=== PATIENT | female | born 1950 | race Caucasian/White ===

== ENCOUNTER → 2017-02-18 | Day surgery (SDC) | payer MEDICARE, BC ==
[~2017-02-18] VITALS: Ht 157.5 cm; Wt 74.8 kg
[~2017-02-18] MED LIST: ALL10TAB27 PO; AMLO2.5T PO; ASPI81TA85 PO; CALC600T7 PO; IBUP200T45 PO; IBUPROFEN 600 MG TAB PO PRN; KETOROLAC 60 MG/2 ML VIAL (J1885) As Ordered ONE; LIDOCAINE 1% MDV 20ML VIAL SC ONE; LIDOCAINE 2% INJ 100 MG/5 ML SDV (FOR ANES.) As Ordered ONE; LOSA100T36 PO; LR 1,000 ML IV ONE; LR 1,000 ML IV SCH; MEPERIDINE INJ 25 MG/ML VIAL (J2175) IV PRN; METO1TAB32 PO; METOCLOPRAMIDE INJ 10MG/2ML VIAL (J2765) IV PRN; MIDAZOLAM INJ 2 MG/2 ML VIAL (J2250) As Ordered ONE; ONDANSETRON 4MG/2ML VIAL (J2405) As Ordered ONE; ONDANSETRON 4MG/2ML VIAL (J2405) IV PRN; PERCOCET 5MG/325MG TAB PO PRN; PRIL20CA9 PO; PROPOFOL 200 MG/20 ML VIAL As Ordered ONE; SIMV20TA2 PO; SING10TA32 PO; VITA100067 PO; dexameTHASONE 4 MG/ML 1ML VIAL (J1100) As Ordered ONE; fentaNYL 100 MCG/2 ML INJECTION (J3010) As Ordered ONE; fentaNYL 100 MCG/2 ML INJECTION (J3010) IV PRN; omegaXL PO
[2017-02-18 11:30] VITALS: BP 132/78
--- NOTE | 2017-02-19 13:18 | RO ---
DATE OF PROCEDURE: 02/18/2017 PREOPERATIVE DIAGNOSES: Postmenopausal bleeding, hematuria and thickened endometrium by ultrasound. POSTOPERATIVE DIAGNOSES: Postmenopausal bleeding, hematuria and thickened endometrium by ultrasound. As well as endometrial polyp found and urethral caruncle, but that was known preoperatively. PROCEDURE: Dilation and curettage (D and C), hysteroscopy and MyoSure resection of the polyp and cystourethroscopy. SURGEON: Dr. Jerri Jenkins QM NURSE: ANESTHESIA: LMA. DESCRIPTION OF PROCEDURE: Eryn was brought to the operating room where sufficient LMA anesthesia was induced, and she was prepped, draped and positioned in the usual sterile fashion with the bladder emptied. There is a visible caruncle, which had been noted preoperatively, but we were not sure that was the entire cause of her hematuria. We then grasped the cervix with a single toothed tenaculum, carefully dilated it and placed the hysteroscope. We were slightly deviated from the cavity, as was noted in some initial pictures that do not seem to have come out. We then redirected the scope and were able to see that there was a large polyp filling the cavity and it sort of pushed the dilator off course. We were able, with the MyoSure, to completely resect this polyp and then visually see that there were normal tubal ostia. There is kind of a rounded shape to the uterus, which is residual of the round polyp that had been filling the cavity, which was completely removed and sent to pathology. We then sampled the remainder of the endometrial wall and carried out some curettage as well. Following this, we turned our attention to the cystourethroscopy. The cystoscope was placed. The urethra itself was slightly friable with that caruncle, even just from placement of the cystoscope. There are no other lesions or difficulties. The bladder has no polyps, stones and no friable areas of the wall. The ureters are normal in appearance. We were able with the 70 degree scope to get a full 360 degree view and see that there were no concerning lesions. Following this, the procedure was ended. Estimated blood loss for the procedure was about 5 mL. Fluid replacement was crystalloid. Complications: None. Condition and Disposition: Eryn tolerated the procedure well and was recovering in the recovery room in good condition.
== END | disposition home or self-care (01) ==
LOC: M SDC 06:08
PROVIDERS: ATTEND Obstetrics & Gynecology
DX: C54.1 Malignant neoplasm of endometrium (principal); N36.2 Urethral caruncle; R31.9 Hematuria, unspecified; R93.8 Abnormal findings on diagnostic imaging of other specified body structures; N84.0 Polyp of corpus uteri; I10 Essential (primary) hypertension; G43.909 Migraine, unspecified, not intractable, without status migrainosus; E78.5 Hyperlipidemia, unspecified; J30.9 Allergic rhinitis, unspecified; M19.90 Unspecified osteoarthritis, unspecified site; M54.9 Dorsalgia, unspecified; M81.0 Age-related osteoporosis without current pathological fracture; Z79.899 Other long term (current) drug therapy; Z79.82 Long term (current) use of aspirin
CPT/HCPCS: 58558; 88305; J1100; J1885; J2250; J2405; J2765; J3010

== ENCOUNTER → 2017-06-02 | Outpatient (REF) | payer MEDICARE, BC ==
[~2017-06-02] MED LIST changes: -IBUPROFEN 600 MG TAB PO PRN; -KETOROLAC 60 MG/2 ML VIAL (J1885) As Ordered ONE; -LIDOCAINE 1% MDV 20ML VIAL SC ONE; -LIDOCAINE 2% INJ 100 MG/5 ML SDV (FOR ANES.) As Ordered ONE; -LR 1,000 ML IV ONE; -LR 1,000 ML IV SCH; -MEPERIDINE INJ 25 MG/ML VIAL (J2175) IV PRN; -METOCLOPRAMIDE INJ 10MG/2ML VIAL (J2765) IV PRN; -MIDAZOLAM INJ 2 MG/2 ML VIAL (J2250) As Ordered ONE; -ONDANSETRON 4MG/2ML VIAL (J2405) As Ordered ONE; -ONDANSETRON 4MG/2ML VIAL (J2405) IV PRN; -PERCOCET 5MG/325MG TAB PO PRN; -PROPOFOL 200 MG/20 ML VIAL As Ordered ONE; -dexameTHASONE 4 MG/ML 1ML VIAL (J1100) As Ordered ONE; -fentaNYL 100 MCG/2 ML INJECTION (J3010) As Ordered ONE; -fentaNYL 100 MCG/2 ML INJECTION (J3010) IV PRN
== END ==
LOC: M LAB REF 16:31
PROVIDERS: ATTEND Obstetrics & Gynecology
DX: R31.0 Gross hematuria (principal); R39.89 Other symptoms and signs involving the genitourinary system

== ENCOUNTER → 2018-09-14 | Outpatient (CLI) | payer MEDICARE, BC ==
[~2018-09-14] MED LIST changes: -ALL10TAB27 PO; +ALL10TAB28 PO; -AMLO2.5T PO; +AMLO2.5T3 PO; +FISH7.5C PO; +LASI40TA9 PO; +LIDOCAINE 1% MDV 20ML VIAL As Ordered ONE; -LOSA100T36 PO; +LOSA100T50 PO; +OMEP20CA3 PO; +SF1.1GEL DT; +TRAM50TA2 PO
--- NOTE | 2018-09-14 21:20 | REP ---
CT-GUIDED RIGHT LOWER LOBE LUNG BIOPSY The procedure was performed under the direct supervision of Dr. Leal. The patient has a history to 2.1 cm nodule in the right lower lobe seen on a previous CT scan dated 08/04/2018 from [facility]. The risks and benefits of the procedure were explained to the patient and informed consent was obtained. The right lower lobe nodule was localized using CT guidance. On the initial CT images the patient appears to have a [id number] right pleural effusion. This is a new finding from the previous CT scan performed on 08/04/2018. It was felt to be unsafe to proceed with the biopsy. The ordering physician, Dr. Hope, was notified of these findings at the time of the procedure. The patient will follow-up with Dr. Hope. Reviewed by PANCHITO Schmidt 09/14/2018 05:38 P Electronically Signed by Adolfo Leal MD 09/14/2018 09:11 P
== END ==
LOC: M RADPRO 08:26
PROVIDERS: ATTEND Internal Medicine Pulmonary Disease
DX: J90 Pleural effusion, not elsewhere classified (principal); R91.8 Other nonspecific abnormal finding of lung field

== ENCOUNTER → 2018-09-15 | Outpatient (CLI) | payer MEDICARE, BC ==
[~2018-09-15] MED LIST changes: -LIDOCAINE 1% MDV 20ML VIAL As Ordered ONE
[2018-09-15 10:34] LABS: BASO % 0.5 % (0.0-1.0); EOS # 0.1 10^3/uL (0.0-0.50); EOS % 2.5 % (0.0-3.0); HEMATOCRIT 42.4 % (36.0-47.0); HEMOGLOBIN 13.9 g/dl (12.0-15.5); LYMPH # 0.9 10^3/uL (1.5-4.5); LYMPH % 20.1 % (24.0-44.0); MEAN CORPUSCULAR HEMOGLOBIN 31.2 pg (27.0-33.0); MEAN CORPUSCULAR HGB CONC 32.8 g/dl (32.0-36.5); MEAN CORPUSCULAR VOLUME 95.3 fl (80.0-96.0); MONO # 0.4 10^3/uL (0.0-0.8); MONO % 9.8 % (0.0-5.0); NEUTROPHILS # 2.9 10^3/uL (1.8-7.7); NEUTROPHILS % 66.9 % (36.0-66.0); PLATELET COUNT, AUTOMATED 232 10^3/uL (150-450); RED BLOOD COUNT 4.45 10^6/uL (4.00-5.40); WHITE BLOOD COUNT 4.4 10^3/uL (4.0-10.0)
[2018-09-15 10:48] LABS: INR 0.99; PROTHROMBIN TIME 13.2 SECONDS (12.1-14.4)
[2018-09-15 11:00] LABS: ALBUMIN 3.8 GM/DL (3.2-5.2); ALT/SGPT 24 U/L (12-78); BILIRUBIN,TOTAL 0.7 MG/DL (0.2-1.0); BLOOD UREA NITROGEN 13 MG/DL (7-18); CALCIUM LEVEL 9.6 MG/DL (8.8-10.2); CARBON DIOXIDE LEVEL 28 MEQ/L (21-32); CHLORIDE LEVEL 106 MEQ/L (98-107); CREATININE FOR GFR 0.71 MG/DL (0.55-1.30); GLOMERULAR FILTRATION RATE > 60.0 (>45); GLUCOSE, FASTING 95 MG/DL (70-100); LDH LACTATE DEHYDROGENASE 191 U/L (84-246); POTASSIUM SERUM 4.6 MEQ/L (3.5-5.1); SODIUM LEVEL 139 MEQ/L (136-145); TOTAL PROTEIN 6.9 GM/DL (6.4-8.2)
--- NOTE | 2018-09-15 12:07 | RO ---
DATE OF PROCEDURE: 09/15/2018 DIAGNOSIS: Right pleural effusion. FINDING: Moderate right pleural effusion. PROCEDURES: Right ultrasound-guided thoracentesis. SURGEON: Dr. Claus Hope. TIP SCOURER: None ANESTHESIA: 1% lidocaine 10 mL. SPECIMENS: 1. Cytology. 2. PH. 3. Cell count. 4. Culture, AFB. 5. Gram stain and aerobic culture. 6. Glucose. 7. Total protein. 8. LDH. 9. Albumin. 10. Amylase. 11. Anaerobic culture. 12. Fungal culture. DESCRIPTION OF PROCEDURE: Informed consent was reviewed with the patient in preprocedure area. The patient was then placed in the sitting position. Time-out was performed identifying two patient identifiers identifying correct site, correct procedure. The largest fluid collection was identified under ultrasound and marked. Chlorhexidine and full barrier precautions were used. 1% lidocaine was introduced subcutaneously down to the level of the pleura with return of turbid, red non-clotting fluid. The needle was removed and the arrow trocar was placed. Catheter was advanced over the trocar and the trocar was removed. There was return of a total of 1200 mL of dark red fluid. The procedure was stopped due to chest discomfort and back discomfort. There were no observed complications. Postprocedure chest x-ray shows near resolution of the fluid. There is no evidence of pneumothorax. After the catheter was removed under exhalation, a Band-Aid was placed over the site. MARCOS
[2018-09-15 12:17] LABS: APPEARANCE, BODY FLUID CLOUDY (CLEAR); PLEURAL FL COLOR RED (COLORLESS); SOURCE, BODY FLUID PLEURAL
[2018-09-15 12:29] LABS: PH BODY FLUID 7.512 UNITS (NOT ESTABLISHED); SOURCE, BODY FLUID pH PLEURAL
--- NOTE | 2018-09-15 12:41 | REP ---
POST THORACENTESIS CHEST: 09/15/2018. COMPARISON: Images from a limited CT 09/14/2018, outside CT chest 08/04/2018. CLINICAL HISTORY: Right thoracentesis, right chest. FINDINGS: Indwelling right jugular port catheter with tip in the SVC near the right atrium. Right pleural effusion has been drained with small residual fluid in the minor fissure, major fissure, and in the posterior sulcus. There is no pneumothorax. Left lung clear. Peripheral right lateral base density, less well seen than on CT. Heart size not grossly enlarged. The aorta is normal. Airway intact. IMPRESSION: 1. Status post thoracentesis right chest, no pneumothorax. Small residual amount of fluid. Electronically Signed by Adolfo Leal MD 09/15/2018 02:24 P
[2018-09-15 13:06] LABS: AMYLASE, BODY FLUID 25 U/L (NOT ESTABLISHED); LDH, BODY FLUID 198 U/L (NOT ESTABLISHED); SOURCE, BODY FLUID AMYLASE PLEURAL; SOURCE, BODY FLUID GLUCOSE PLEURAL; SOURCE, BODY FLUID LDH PLEURAL; SOURCE, BODY FLUID TOT PROTEIN PLEURAL; TOTAL PROTEIN, BODY FLUID 4.8 G/DL (NOT ESTABLISHED)
== END ==
LOC: M RADPRO 10:17
PROVIDERS: ATTEND Internal Medicine Pulmonary Disease
DX: J90 Pleural effusion, not elsewhere classified (principal); Z79.82 Long term (current) use of aspirin; Z79.899 Other long term (current) drug therapy

== ENCOUNTER 2018-09-20 09:07 | Inpatient (IN) | payer MEDICARE, BC ==
[~2018-09-20] VITALS: Ht 160 cm; Wt 76.1 kg
[2018-09-20] MEDS: PANTOPRAZOLE 40MG TAB (PROTONIX) PO SCH (09:00)
[~2018-09-20 09:07] MED LIST changes: -FISH7.5C PO; -LASI40TA9 PO; -OMEP20CA3 PO; -SF1.1GEL DT; -TRAM50TA2 PO
[2018-09-20] MEDS ORDERED: KCL 20MEQ IN D5/NS 1000ML 1,000 ML IV SCH (10:57)
[2018-09-20] MEDS ORDERED: LEVALBUTEROL 1.25 MG/0.5 ML CONCENTRATE NEB NEB PRN (11:00)
[2018-09-20] MEDS ORDERED: ACETAMINOPHEN TAB 650MG DOSE (2X325MG) PO PRN (11:00)
[2018-09-20] MEDS ORDERED: NORCO, ANEXSIA 5/325MG TABLET (HYDROcodone/ACETAMINOPHEN) PO PRN (11:00)
[2018-09-20] MEDS ORDERED: BISACODYL 10 MG SUPP PR PRN (11:00)
[2018-09-20] MEDS ORDERED: KETOROLAC 30 MG/ML VIAL (J1885) IV SCH (12:00)
[2018-09-20] MEDS ORDERED: FLUMAZENIL 0.5 MG/5 ML VIAL As Ordered ONE (12:50)
[2018-09-20] MEDS ORDERED: MIDAZOLAM INJ 2 MG/2 ML VIAL (J2250) As Ordered ONE (12:51)
[2018-09-20] MEDS ORDERED: LIDOCAINE 1% MDV 20ML VIAL As Ordered ONE (12:52)
[2018-09-20 13:06] VITALS: BP 161/93
[2018-09-20 13:22] LABS: BASO % 0.2 % (0.0-1.0); EOS # 0.2 10^3/uL (0.0-0.50); EOS % 2.5 % (0.0-3.0); HEMATOCRIT 40.6 % (36.0-47.0); HEMOGLOBIN 13.9 g/dl (12.0-15.5); LYMPH # 0.7 10^3/uL (1.5-4.5); LYMPH % 11.6 % (24.0-44.0); MEAN CORPUSCULAR HEMOGLOBIN 31.4 pg (27.0-33.0); MEAN CORPUSCULAR HGB CONC 34.2 g/dl (32.0-36.5); MEAN CORPUSCULAR VOLUME 91.9 fl (80.0-96.0); MONO # 0.6 10^3/uL (0.0-0.8); MONO % 9.2 % (0.0-5.0); NEUTROPHILS # 4.5 10^3/uL (1.8-7.7); NEUTROPHILS % 76.3 % (36.0-66.0); PLATELET COUNT, AUTOMATED 270 10^3/uL (150-450); RED BLOOD COUNT 4.42 10^6/uL (4.00-5.40)
[2018-09-20 13:45] LABS: BLOOD UREA NITROGEN 12 MG/DL (7-18); CALCIUM LEVEL 9.8 MG/DL (8.8-10.2); CARBON DIOXIDE LEVEL 26 MEQ/L (21-32); CHLORIDE LEVEL 105 MEQ/L (98-107); GLOMERULAR FILTRATION RATE > 60.0 (>45); GLUCOSE, FASTING 104 MG/DL (70-100); LDH LACTATE DEHYDROGENASE 176 U/L (84-246); SODIUM LEVEL 137 MEQ/L (136-145)
[2018-09-20] MEDS: KETOROLAC 30 MG/ML VIAL (J1885) IV SCH ×2 (13:50→20:03)
--- NOTE | 2018-09-20 14:25 | REP ---
Chest one-view HISTORY: Pleural effusion Comparison: 09/15/2018 Parenchymal density is present in the right lower lobe consistent with atelectasis or infiltrate. A small right pleural effusion is present. Linear density is present in the left lower lobe consistent with atelectasis. The heart is normal in size. The pulmonary vasculature is normal in appearance. An Blqptn-[id number]-Hpyc catheter is present. Impression: 1. Right lower lobe atelectasis or infiltrate . 2. Small right pleural effusion. 3. Left lower lobe atelectasis. Electronically Signed by Renaldo Baldwin MD 09/20/2018 02:16 P
--- NOTE | 2018-09-20 14:29 | RO ---
DATE OF PROCEDURE: 09/20/2018 PREPROCEDURE DIAGNOSIS: Right pleural effusion. POSTPROCEDURE DIAGNOSIS: Right pleural effusion. PROCEDURE: Insertion of right lateral chest tube. SURGEON: Dr. Virgilio Jones TIP STRETCHER: ANESTHESIA: FINDINGS: 1600 mL of serosanguineous, more serous than sanguinous fluid, was eluted from the chest. It was sent for the requisite chemistries, cytologies, hematologies, and bacteriologies. DESCRIPTION OF PROCEDURE: Under satisfactory monitored sedation achieved with 6 mg of Versed, the patient was prepped and draped in the usual sterile fashion. Incision was made in the inframammary fold in the right mid axillary line. A tunnel was created in the chest without difficulty. A tunnel was dilated and a #24 chest tube was placed without difficulty. The above findings were noted. The chest tube was secured to the chest wall with #2 Tevdek suture. The patient tolerated the procedure well and a chest x-ray is pending.
[2018-09-20 14:31] LABS: PH BODY FLUID 7.688 UNITS (NOT ESTABLISHED); SOURCE, BODY FLUID pH PLEURAL
--- NOTE | 2018-09-20 14:34 | REP ---
Clinical: Status post thoracentesis for pleural effusion. Comparison: 09/20/2018 at 13:33. Findings: Right-sided chest tube overlies the lower lung field and previous pleural effusion is decreased. Right basilar atelectasis noted. No obvious pneumothorax. Mediastinum and cardiac silhouette are stable. Left hemithorax is well-aerated and clear. Nkjwig-M-Osoa identified with tip in the SVC. Skeletal structures are intact. Impression: Right chest tube with decreased pleural effusion. Right lower lobe atelectasis. No obvious pneumothorax. Electronically Signed by Jani Clements MD 09/20/2018 02:26 P
[2018-09-20 14:36] LABS: ABG BASE EXCESS 0.4 (-2.0-2.0); ABG HCO3 24.4 MEQ/L (22.0-26.0); ABG O2 SATURATION 96.1 % (95.0-99.0); ABG PARTIAL PRESSURE CO2 37.2 mmHg (35.0-45.0); ABG PARTIAL PRESSURE O2 82.9 mmHg (75.0-100.0); ABG STANDARD HCO3 24.8 MEQ/L (22.0-26.0); ABG TOTAL CO2 25.5 MEQ/L (23.0-31.0); ABG pH (ARTERIAL) 7.434 UNITS (7.350-7.450)
[2018-09-20] MEDS ORDERED: FISH7.5C PO (14:39)
[2018-09-20] MEDS ORDERED: SF1.1GEL DT (14:39)
[2018-09-20] MEDS ORDERED: TRAM50TA2 PO (14:39)
[2018-09-20] MEDS ORDERED: OMEP20CA3 PO (14:39)
[2018-09-20] MEDS: LEVALBUTEROL 1.25 MG/0.5 ML CONCENTRATE NEB NEB SCH ×2 (14:51→20:30)
[2018-09-20 15:01] LABS: APPEARANCE, BODY FLUID CLOUDY (CLEAR); PLEURAL FL COLOR RED (COLORLESS); SOURCE, BODY FLUID PLEURAL
[2018-09-20] MEDS: PERCOCET 5MG/325MG TAB PO PRN (15:04)
[2018-09-20 15:07] LABS: AMYLASE, BODY FLUID 23 U/L (NOT ESTABLISHED); CHOLESTEROL, BODY FLUID 87 MG/DL (NOT ESTABLISHED); SOURCE, BODY FLUID ALBUMIN PLEURAL; SOURCE, BODY FLUID AMYLASE PLEURAL; SOURCE, BODY FLUID CHOL PLEURAL; SOURCE, BODY FLUID GLUCOSE PLEURAL; SOURCE, BODY FLUID TOT PROTEIN PLEURAL; SOURCE, BODY FLUID TRIG PLEURAL; TOTAL PROTEIN, BODY FLUID 4.9 G/DL (NOT ESTABLISHED); TRIGLYCERIDE, BODY FLUID 49 MG/DL (NOT ESTABLISHED)
--- NOTE | 2018-09-20 15:19 | HPE ---
DATE OF ADMISSION: 09/20/2018 The patient is being admitted at the request of Dr. Hope for a pleural effusion and multiple lung masses. HISTORY OF PRESENT ILLNESS: The patient is a 68-year-old white female who underwent hysterectomy, chemotherapy and radiation therapy for endometrial carcinoma, which was graded Stage III A. On 08/22/2018 she noticed a right sided lateral chest discomfort. It was more of a dull aching pain and she thought she pulled a muscle. She therefore sought advice first from Dr. Rojas, her oncologist, who noted multiple lung masses, and Dr. Hope, who confirmed the same. She does not complain of shortness of breath until a few days ago when she had fluid accumulation. At that point in time, she was drained over 1 liter. In the last 2 days, she has become again short of breath, having difficulty walking from her car in the parking lot to her room in the hospital. She has a slight cough but not sputum production and certainly no hemoptysis. The cough has only been about 2 or 3 days. She has chest discomfort, which increases with taking a deep breath. There has been no weight change. She has no fever or chills, but does complain of sweats, which she puts down to hormonal therapy. There is no dysphagia. PAST MEDICAL HISTORY: 1. The above poorly differentiated adenocarcinoma of the endometrium, Stage III A. 2. History of perirectal abscesses. 3. History of vertigo. 4. Gastroesophageal reflux disease (GERD). 5. Hypercholesterolemia. 6. Hypertension. PAST SURGICAL HISTORY: 1. The above hysterectomy. 2. Tonsillectomy as a child. 3. Two D and C's in the remote past. MEDICATIONS: - aspirin 81 mg daily - vitamin D 1000 units daily - Prilosec 20 mg daily - metoprolol 25 mg daily - cetirizine 10 mg daily - amlodipine 2.5 mg daily - Singulair 1 mg at night - simvastatin 20 mg daily - omega 3 1000 mg daily ALLERGIES: None. HABITS: Lifetime nonsmoker. Does not drink. No illicit drugs. EXPOSURES: No dogs, birds or cats at home. No exposures to tuberculosis. OCCUPATIONAL HISTORY: She used to work as a nurse's aide. Her TB tests were negative. FAMILY HISTORY: Mother at the age of 95 with hypertension. Father at 75 with unknown cancer. She has a brother with hypertension. REVIEW OF SYSTEMS: CONSTITUTIONAL: See history of present illness. Without fevers, chills, but with night sweats occasionally. No weight loss. EYES: Without diplopia, without prior jaundice. Without amaurosis fugax. Wears glasses. NOSE: Without epistaxis. Has dentures. RESPIRATORY: See history of present illness. CARDIAC: Without orthopnea, paroxysmal nocturnal dyspnea. Without prior myocardial infarctions or anginal type chest pain. Without intermittent claudication. Has occasional leg edema. GASTROINTESTINAL: Without nausea, vomiting, diarrhea or constipation. Does have black stools, which she attributes to iron. No hematochezia. No hematemesis. Does not complain of abdominal pain. GENITOURINARY: Without dysuria or hematuria or history of renal stones. NEUROLOGIC: Has peripheral neuropathy from her chemotherapy. Without paresthesias, paralyses or prior CVAs. Without amaurosis fugax. ENDOCRINE: Without thyroid disease and without diabetes. PSYCHIATRIC: Without pathological anxieties, depression, or psychoses. HEMATOLOGIC: Without prolonged bleeding times. PHYSICAL EXAMINATION: VITAL SIGNS: Temperature 98.2 with a heart rate of 97 in a sinus rhythm, respiratory rate of 22, blood pressure 161/93, and she is 92% saturated on room air. HEAD: Normocephalic. Eyes: Pupils are equal, round and reactive to light. Extraocular motors are intact. Sclerae nonicteric. Nose without deformity. Mouth shows her mucous membranes to be pink and moist. Lips and commissures without lesions. Dentures are in place. There is no thrush. Neck is supple. There is no jugular venous distention (JVD). No subcutaneous emphysema. Trachea is midline. She has 2+ carotid pulses without bruits. LUNGS: Show decreased breath sounds in the right lower hemithorax with a dull percussion note to the right hemithorax. She has diminished breath sounds in the right hemithorax. I do hear some expiratory wheezing, particularly on the right side. CARDIAC: Without murmurs, clicks, gallops or rubs. I cannot feel her point of maximum impulse (PMI). S1, S2 are normal. ABDOMEN: Soft, nontender. Bowel sounds positive. There is no hepatomegaly and no costovertebral angle tenderness. EXTREMITIES: Show no pretibial edema. No calf tenderness. No differential swelling of the upper extremities. SKIN: Warm, dry and perfused without cyanosis or mottling, including that of the nail beds and knees. NEUROLOGIC: Shows II-XII intact. Gross motor and gross sensation intact. Gait is not tested. PSYCHIATRIC: Shows her to be awake and alert, oriented times three with appropriate mood and affect and conversational. INVESTIGATIONS: Her white count is 6.0 with a hemoglobin and hematocrit of 13.9 and 40.6, respectively with a platelet count of 270. Differential shows 76% neutrophils, 11% lymphocytes, 9% monocytes. There are no immature forms. No toxic granulations. Her electrolytes are normal with a BUN and creatinine of 12 and 0.8 with a glucose of 104 and a calcium of 9.8. Blood gases are pending. Her spirometry shows an FEV1 of 1.95 with an FEV1/FVC ratio of 87%. These look to be normal pulmonary function tests. Chest CT done at [place] shows multiple lung masses in all lobes with a right lower lobe lung mass, which is adjacent to the chest wall. There are no emphysematous changes. The masses measure anywhere between 1 and 2 cm. She is scheduled for a lung biopsy; however, when the CT guidance images were obtained, she had a new pleural effusion, which is pushing the lower lobe lesion away from the chest wall. Her chest x-ray today shows a pleural effusion on the right side, approximately one-third of the way up the chest. IMPRESSION: 1. Recurrent right sided pleural effusion. 2. 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 3. Hyperlipidemia. 4. Hypertension. 5. Gastroesophageal reflux disease (GERD). PLAN/DISCUSSION: I will place a chest tube to get the lung back to the chest wall and then proceed with a lung biopsy tomorrow. By that time, the fluid should be all gone and the lung back to the chest wall. The patient and her family understand the strategy and they are willing to proceed.
[2018-09-20 15:45] LABS: LDH, BODY FLUID 180 U/L (NOT ESTABLISHED); SOURCE, BODY FLUID LDH PLEURAL
[2018-09-20 16:00] VITALS: BP 128/74
[2018-09-20] MEDS: NORCO, ANEXSIA 5/325MG TABLET (HYDROcodone/ACETAMINOPHEN) PO PRN ×2 (16:39→20:04)
[2018-09-20 20:00] VITALS: BP 118/67
[2018-09-20] MEDS: HEPARIN SOD (PORCINE) 5000 UNITS/ML VIAL SC SCH (20:02)
[2018-09-20] MEDS: DOCUSATE SODIUM 100 MG CAP PO SCH (20:04)
[2018-09-20] MEDS: ONDANSETRON 4MG/2ML VIAL (J2405) IV PRN (21:12)
[2018-09-20] MEDS ORDERED: LIDOCAINE 1% MDV 20ML VIAL SC ONE (21:15)
[2018-09-20] MEDS ORDERED: MIDAZOLAM INJ 2 MG/2 ML VIAL (J2250) IV ONE ×3 (21:15)
[2018-09-20] MEDS: MORPHINE 4 MG/ML 1ML VIAL/SYRINGE (J2270) IV PRN (21:36)
[2018-09-21] VITALS (10 sets, daily range): BP systolic 116–137; BP diastolic 59–74
[2018-09-21] MEDS: MORPHINE 4 MG/ML 1ML VIAL/SYRINGE (J2270) IV PRN ×2 (00:33→04:56)
[2018-09-21] MEDS: LEVALBUTEROL 1.25 MG/0.5 ML CONCENTRATE NEB NEB SCH ×4 (02:00→20:36)
[2018-09-21] MEDS: KETOROLAC 30 MG/ML VIAL (J1885) IV SCH ×4 (02:45→20:10)
[2018-09-21] MEDS: ONDANSETRON 4MG/2ML VIAL (J2405) IV PRN ×4 (04:37→17:40)
[2018-09-21 05:50] LABS: ABG BASE EXCESS -0.1 (-2.0-2.0); ABG HCO3 25.2 MEQ/L (22.0-26.0); ABG O2 SATURATION 94.1 % (95.0-99.0); ABG PARTIAL PRESSURE CO2 43.5 mmHg (35.0-45.0); ABG PARTIAL PRESSURE O2 68.8 mmHg (75.0-100.0); ABG STANDARD HCO3 24.3 MEQ/L (22.0-26.0); ABG TOTAL CO2 26.5 MEQ/L (23.0-31.0)
[2018-09-21 06:13] LABS: BASO % 0.2 % (0.0-1.0); EOS # 0.2 10^3/uL (0.0-0.50); EOS % 4.4 % (0.0-3.0); HEMATOCRIT 37.3 % (36.0-47.0); HEMOGLOBIN 12.3 g/dl (12.0-15.5); LYMPH # 0.6 10^3/uL (1.5-4.5); LYMPH % 13.2 % (24.0-44.0); MONO # 0.6 10^3/uL (0.0-0.8); MONO % 11.9 % (0.0-5.0); NEUTROPHILS # 3.3 10^3/uL (1.8-7.7); NEUTROPHILS % 69.9 % (36.0-66.0); PLATELET COUNT, AUTOMATED 195 10^3/uL (150-450); RED BLOOD COUNT 3.97 10^6/uL (4.00-5.40); WHITE BLOOD COUNT 4.8 10^3/uL (4.0-10.0)
[2018-09-21 06:41] LABS: BLOOD UREA NITROGEN 13 MG/DL (7-18); CALCIUM LEVEL 9.1 MG/DL (8.8-10.2); CARBON DIOXIDE LEVEL 27 MEQ/L (21-32); CHLORIDE LEVEL 107 MEQ/L (98-107); CREATININE FOR GFR 0.68 MG/DL (0.55-1.30); GLOMERULAR FILTRATION RATE > 60.0 (>45); GLUCOSE, FASTING 107 MG/DL (70-100); POTASSIUM SERUM 3.4 MEQ/L (3.5-5.1); SODIUM LEVEL 140 MEQ/L (136-145)
--- NOTE | 2018-09-21 08:17 | REP ---
Clinical: Follow up pleural effusion. Technique: PA and lateral. Comparison: 09/20/2018. Findings: Right chest tube stable. Rmutki-M-Teln again identified with tip in the SVC. Moderately increased right lower lobe atelectasis is suggested. No obvious residual effusion. Trace left basilar atelectasis cannot be excluded. Visualized mediastinum and cardiac silhouette stable. Impression: 1. Mildly increased right lower lobe atelectasis suggested along with trace left basilar atelectasis. 2. No obvious significant residual pleural effusion Electronically Signed by Jani Clements MD 09/21/2018 08:10 A
[2018-09-21] MEDS: DOCUSATE SODIUM 100 MG CAP PO SCH ×2 (09:00→20:10)
[2018-09-21] MEDS: MOM 30ML SUSPENSION UDC PO SCH (09:00)
[2018-09-21] MEDS: HEPARIN SOD (PORCINE) 5000 UNITS/ML VIAL SC SCH ×2 (09:00→20:09)
--- NOTE | 2018-09-21 10:50 | IPN ---
DATE: 09/21/2018 Ms. Shea has had a difficult night with pain and nausea. The nausea is probably secondary to narcotic analgesia. Her vital signs show a T-max of 98.8 with a heart rate that ranges between 71 to 78 in a sinus rhythm, a respiratory rate of 18 to 22 without the use of accessory muscles, who is 92% saturated on room air and whose blood pressure is ranging between 117/59 to 127/66. Her intake and output the past 24 hours has been recorded as 1050 in and 2170 out for a negative of 1120 mL. She put out a total of 1770 mL yesterday from the chest tube and a 110 mL in the last 9 hours. She weighs 77.2 kg today compared to 77.5 kg yesterday. On physical examination, her lungs show equal breath sounds on either side. I heart some occasional rhonchi. Percussion note is full to the diaphragm. Cardiac Exam: Without murmurs, clicks, gallops, or rubs. I cannot feel her PMI. S1 and S2 are normal. Abdomen: Soft. Nontender. Bowel sounds are positive. There is no hepatomegaly. No costovertebral angle (CVA) tenderness. Extremities: Show no pretibial edema. No calf tenderness. No differential swelling of the upper extremities. Skin: Warm, dry and perfused. Without cyanosis or mottling, including that of the nail beds and knees. Neck: Supple. There is no jugular venous distention. No subcutaneous emphysema. Trachea is midline. Mouth: Shows her mucous membranes to be pink and moist. Lips and commissures are without lesions. There is no thrush. Eyes: Show her pupils to be equal and reactive. Extraocular movements intact. Sclerae nonicteric. Neurologic: Shows II-XII intact along with gross motor and gross sensation intact. Gait is not tested. Psychiatric shows her to be awake, alert, and oriented times three with appropriate mood and affect and conversational. Her white count today is 4.8 with hemoglobin and hematocrit of 12.3 and 37.3 respectively with a platelet count of 195. Differential shows 69% neutrophils, 13% lymphocytes and 11% monocytes. There are no immature forms and no toxic granulations. Electrolytes show marginally low potassium of 3.4 down from 4.0 yesterday. BUN and creatinine are 13 and 0.68 respectively. Chest x-ray shows her lung fully expanded to the chest wall. Costophrenic angles are sharp. There is some what looks to be some compression atelectasis on the PA film. Her pleural fluid shows a pH of 7.68, with a glucose of 109 and a LDH of 180 with a corresponding serum LDH of 179. She has 965 white cells, 91% of which are lymphocytic and 8% PMNs. This therefore looks to be a lymphocytic exudative normoglycemic pleural effusion consistent with probable malignancy. PLAN AND DISCUSSION: She is going for a biopsy of her right lower lobe mass this afternoon. After that is accomplished and if she is not leaking air, I will remove her chest tube and discharge her most likely tomorrow.
[2018-09-21] MEDS: PANTOPRAZOLE 40MG TAB (PROTONIX) PO SCH (11:12)
[2018-09-21] MEDS: PERCOCET 5MG/325MG TAB PO PRN ×3 (11:13→23:33)
[2018-09-21] MEDS ORDERED: SLF 3 ML SYR IV PRN (11:30)
[2018-09-21] MEDS ORDERED: LIDOCAINE 1% MDV 20ML VIAL As Ordered ONE (13:17)
[2018-09-21] MEDS: SLF 3 ML SYR IV SCH ×2 (14:22→20:10)
[2018-09-22] MEDS: LEVALBUTEROL 1.25 MG/0.5 ML CONCENTRATE NEB NEB SCH ×3 (02:00→14:06)
[2018-09-22] MEDS: ONDANSETRON 4MG/2ML VIAL (J2405) IV PRN ×2 (02:27→08:16)
[2018-09-22] MEDS: KETOROLAC 30 MG/ML VIAL (J1885) IV SCH ×3 (02:30→14:57)
[2018-09-22 04:00] VITALS: BP 138/73
[2018-09-22] MEDS: SLF 3 ML SYR IV SCH ×2 (05:47→14:58)
[2018-09-22 06:03] LABS: BASO % 0.2 % (0.0-1.0); EOS # 0.3 10^3/uL (0.0-0.50); EOS % 6.6 % (0.0-3.0); HEMATOCRIT 37.3 % (36.0-47.0); HEMOGLOBIN 12.1 g/dl (12.0-15.5); LYMPH # 0.6 10^3/uL (1.5-4.5); LYMPH % 13.5 % (24.0-44.0); MEAN CORPUSCULAR HEMOGLOBIN 30.8 pg (27.0-33.0); MEAN CORPUSCULAR HGB CONC 32.4 g/dl (32.0-36.5); MEAN CORPUSCULAR VOLUME 94.9 fl (80.0-96.0); MONO # 0.4 10^3/uL (0.0-0.8); MONO % 9.1 % (0.0-5.0); NEUTROPHILS # 2.9 10^3/uL (1.8-7.7); NEUTROPHILS % 70.4 % (36.0-66.0); PLATELET COUNT, AUTOMATED 199 10^3/uL (150-450); RED BLOOD COUNT 3.93 10^6/uL (4.00-5.40); WHITE BLOOD COUNT 4.1 10^3/uL (4.0-10.0)
[2018-09-22 06:17] LABS: BLOOD UREA NITROGEN 10 MG/DL (7-18); CALCIUM LEVEL 9.3 MG/DL (8.8-10.2); CARBON DIOXIDE LEVEL 26 MEQ/L (21-32); CHLORIDE LEVEL 107 MEQ/L (98-107); CREATININE FOR GFR 0.62 MG/DL (0.55-1.30); GLOMERULAR FILTRATION RATE > 60.0 (>45); GLUCOSE, FASTING 93 MG/DL (70-100); POTASSIUM SERUM 3.5 MEQ/L (3.5-5.1); SODIUM LEVEL 140 MEQ/L (136-145)
[2018-09-22] MEDS: PERCOCET 5MG/325MG TAB PO PRN (06:36)
--- NOTE | 2018-09-22 07:56 | REP ---
Clinical: Pleural effusion. Technique: PA and lateral. Comparison: 09/21/2018. Findings: Right chest tube in stable position. [id number] with tip in the SVC. Mediastinum and cardiac silhouette are within normal limits and stable. Improved aeration to the bilateral lung prather suggested with continued bibasilar fibro atelectatic changes (right greater than left) no significant residual pleural effusion appreciated. Rounded right lower lobe mass best identified on lateral radiograph again identified. Skeletal structures intact. Impression: 1. Improved aeration to the bilateral lung prather. 2. Continued bibasilar atelectasis without significant pleural effusion. Electronically Signed by Jani Clements MD 09/22/2018 07:48 A
[2018-09-22 08:00] VITALS: BP 140/67
[2018-09-22] MEDS ORDERED: LASI40TA9 PO (08:03)
--- NOTE | 2018-09-22 08:11 | REP ---
CT-GUIDED RIGHT LOWER LOBE LUNG BIOPSY The procedure was performed under the direct supervision of Dr. Chung. The patient has a history of a 2.1 cm nodule in the right lower lobe seen on a previous CT scan dated 08/04/2018 from [facility]. The biopsy was not attempted on 09/14/2018 however the patient developed a large right pleural effusion. The pleural effusion was drained on 09/15/2018 however the accumulated. A chest tube was placed by Dr. Jones on 09/20/2018. The patient was then referred for biopsy of the right lower lobe mass. The risks and benefits of the procedure were explained to the patient and informed consent was obtained. The right lower lobe lung mass was localized using CT guidance. The skin was prepped and draped in a sterile fashion. 1% lidocaine was used as a local anesthetic. Using CT guidance a 19/20 gauge coaxial needle biopsy system was inserted and advanced into the mass. Five core biopsy samples were obtained and sent to lab. The patient tolerated the procedure well and there were no immediate complications. After the appropriate amount of monitored convalescence the patient was discharged from the department. Reviewed by PANCHITO Schmidt 09/21/2018 03:56 P Electronically Signed by David Chung MD 09/22/2018 08:02 A
[2018-09-22] MEDS: MOM 30ML SUSPENSION UDC PO SCH (09:17)
[2018-09-22] MEDS: DOCUSATE SODIUM 100 MG CAP PO SCH (09:17)
[2018-09-22] MEDS: PANTOPRAZOLE 40MG TAB (PROTONIX) PO SCH (09:17)
[2018-09-22] MEDS: HEPARIN SOD (PORCINE) 5000 UNITS/ML VIAL SC SCH (09:18)
--- NOTE | 2018-09-22 11:07 | DSES ---
DATE OF ADMISSION: 09/20/2018 DATE OF DISCHARGE: 09/22/2018 DISCHARGE DIAGNOSES: 1. Right pleural effusion. 2. Multiple lung masses. Pathology pending. 3. Status post poorly differentiated adenocarcinoma of the endometrium stage IIIA. 4. Gastroesophageal reflux disease (GERD). 5. Hypertension. 6. History of vertigo. HOSPITAL COURSE: The patient is a 58-year-old white female, who had known endometrial carcinoma stage IIIA, for which she underwent a hysterectomy, chemotherapy, and radiation therapy. She began to notice right-sided chest discomfort, which was discovered at the time of her intended biopsy of her right lower lobe lung mass. The biopsy could not be done, and she was, therefore, admitted to drain the fluid and then undertake the biopsy. Chest tube was drained, where approximately 1600 mL of fluid was removed. Cytology was negative, but it was lymphocytic and exudative but normoglycemic. At the time of discharge, her biopsy results are pending, but we are suspecting considering the appearance of the chest CT that her multiple masses represent metastatic disease. The chest tube was removed the day after her biopsy. She is being discharged today on her home medications, which include amlodipine 2.5 mg nightly, aspirin 81 mg every day, calcium with vitamin D 600/200 twice a day, cetirizine 10 mg every day, metoprolol 25 mg every day, Singulair 10 mg nightly, omega-3 fish oil 1000 mg nightly, omeprazole 20 mg every day, simvastatin 20 mg nightly, as well as home tramadol 50 mg three times a day as needed pain. She is also being placed on Lasix [address] Hope will see her back in the office in my absence next week. We have discussed the possibility that she may need something more definitive done with her pleural effusion if it does not resolve. This will either be a PleurX catheter or a talc pleurodesis. If we get a positive diagnosis, we can refer her back to oncology to start treatment for metastatic carcinoma. edited: 09/23/2018 0720 ras RODRÍGUEZ
[2018-09-22 11:45] VITALS: BP 135/74
[2018-09-22 15:57] VITALS: BP 130/60
== END 2018-09-22 17:45 | disposition home or self-care (01) | DRG 187 ==
LOC: M PCU 11:43 → OBSVTOIN 11:43
PROVIDERS: ADMIT Thoracic Surgery (Cardiothoracic Vascular Surgery); ATTEND Thoracic Surgery (Cardiothoracic Vascular Surgery)
PROC: 0W9930Z Drainage of Right Pleural Cavity with Drainage Device, Percutaneous Approach (ICD-10-PCS; 2018-09-20)
PROC: 0BBF3ZX Excision of Right Lower Lung Lobe, Percutaneous Approach, Diagnostic (ICD-10-PCS; principal; 2018-09-21)
DX: J90 Pleural effusion, not elsewhere classified (principal); C78.01 Secondary malignant neoplasm of right lung; K21.9 Gastro-esophageal reflux disease without esophagitis; E78.00 Pure hypercholesterolemia, unspecified; I10 Essential (primary) hypertension; Z79.82 Long term (current) use of aspirin; Z79.899 Other long term (current) drug therapy

== ENCOUNTER 2018-10-21 14:16 | Day surgery (SDC) | payer MEDICARE, BC ==
[~2018-10-21 14:16] MED LIST changes: +FISH7.5C PO; +LASI40TA9 PO; +OMEP20CA3 PO; +SF1.1GEL DT; +TRAM50TA2 PO
[2018-10-21] MEDS ORDERED: LIDOCAINE 1% MDV 20ML VIAL XX ONE (14:30)
[2018-10-21 16:13] VITALS: BP 107/66
--- NOTE | 2018-10-21 16:15 | RO ---
DATE OF PROCEDURE: 10/21/2018 PREOPERATIVE DIAGNOSIS: Right pleural effusion. POSTOPERATIVE DIAGNOSIS: Right pleural effusion. FINDINGS: A large right pleural effusion under ultrasound. OPERATIVE PROCEDURE: Right ultrasound-guided therapeutic thoracentesis. PROCEDURIST: Claus Hope DO. CATEGORY ANALYST: RUBY Desir ANESTHESIA: 1% lidocaine subcutaneous SPECIMENS: 1200 mL of dark red fluid. DESCRIPTION OF PROCEDURE After informed consent was obtained in the preoperative area, the patient was brought back to the OPP suite #3. A time-out was performed with two patient identifiers, identifying correct side, correct procedure. After confirming the right side, the largest fluid collection was marked under ultrasound. Chlorhexidine and drape was then used for sterile precautions. 1% lidocaine was then introduced subcutaneously then down to the level of the pleura. After entering the pleura, there was return of clear red fluid. The needle was removed. A beatrice in the skin was made and Arrow trocar was advanced into the pleural space with return of the same reddish colored fluid. The catheter was advanced over the trocar and the trocar was removed. A total of 1200 mL of red fluid was drained. The drainage was stopped due to coughing, chest discomfort and some decrease in return. The catheter was removed under exhalation. A Band-Aid was applied over the site. There were no observed complications.
== END 2018-10-21 16:27 | disposition home or self-care (01) ==
LOC: M OPP 14:16
PROVIDERS: ATTEND Internal Medicine Pulmonary Disease
DX: J90 Pleural effusion, not elsewhere classified (principal); R91.8 Other nonspecific abnormal finding of lung field; Z85.42 Personal history of malignant neoplasm of other parts of uterus; Z79.82 Long term (current) use of aspirin; Z79.891 Long term (current) use of opiate analgesic; Z79.899 Other long term (current) drug therapy